=== PATIENT | female | born 1995 | race Caucasian/White ===

== ENCOUNTER 2016-11-05 19:35 | Emergency (ER) | payer MEDICAID, OTHER ==
[~2016-11-05] VITALS: Ht 165.1 cm; Wt 102.1 kg
[~2016-11-05 19:35] MED LIST: CIPR0.3S OP
[2016-11-05 19:45] VITALS: BP 135/92
== END 2016-11-06 00:17 | disposition left against medical advice (07) ==
LOC: ER 19:35
DX: R51 Headache (principal); E66.01 Morbid (severe) obesity due to excess calories; M25.561 Pain in right knee; M79.631 Pain in right forearm; M54.2 Cervicalgia; Z68.37 Body mass index [BMI] 37.0-37.9, adult; M25.512 Pain in left shoulder; V43.52XA Car driver injured in collision with other type car in traffic accident, initial encounter; Y93.89 Activity, other specified; Y92.89 Other specified places as the place of occurrence of the external cause; Y99.8 Other external cause status
CPT/HCPCS: 70450; 70486; 71010; 72125; 73030; 73090; 73110; 73560